=== PATIENT | male | born 1975 ===

== ENCOUNTER 2018-04-19 16:34 | Emergency (ER) | payer SELFPAY ==
[2018-04-19 16:35] VITALS: BMI 28.8
--- NOTE | 2018-04-19 17:18 | C.PDOC ---
History Of Present Illness 42 y/o male, otherwise well, presents to the ED complaining of a dull headache, intermittent for 2 days. Patient is also complaining of bilateral shoulder pain with muscle stiffness and pain to the anterior chest. Otherwise he denies any dizziness, visual changes, cough, URI symptoms, SOB, fever, chills, neck pain/stiffness, vomiting, diarrhea, or abdominal pain. 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 No recent trauma or injury. Time Seen by Provider: 04/19/18 16:48 Chief Complaint (Nursing): Headache History Per: Patient History/Exam Limitations: no limitations Onset/Duration Of Symptoms: Days (2) Current Symptoms Are (Timing): Still Present Quality: Dull Past Medical History Reviewed: Historical Data, Nursing Documentation, Vital Signs - Medical History PMH: HTN Denies: Chronic Kidney Disease - [facility] Procedures LAPAROSCOPIC REPAIR UMBILICAL HERNIA W GRAFT OR PROSTHESIS (08/14/14) LAPAROSCOPIC ROBOTIC ASSISTED PROCEDURE (08/14/14) Family History: States: Unknown Family Hx - Social History Hx Alcohol Use: No Hx Substance Use: No - Immunization History Hx Tetanus Toxoid Vaccination: No Hx Influenza Vaccination: No Hx Pneumococcal Vaccination: No Review Of Systems Except As Marked, All Systems Reviewed And Found Negative. Constitutional: Negative for: Fever, Chills Eyes: Negative for: Vision Change, Other (Photophobia) Cardiovascular: Positive for: Chest Pain Respiratory: Negative for: Shortness of Breath Gastrointestinal: Negative for: Nausea, Vomiting, Abdominal Pain, Diarrhea Musculoskeletal: Positive for: Shoulder Pain. Negative for: Neck Pain Neurological: Positive for: Headache. Negative for: Weakness, Numbness, Dizziness Physical Exam - Physical Exam Appears: Non-toxic, No Acute Distress Skin: Normal Color, Warm, No Rash Head: Atraumatic, Normacephalic Eye(s): bilateral: Normal Inspection, PERRL, EOMI Oral Mucosa: Moist Neck: Supple, Other (muscle spasms to sternocleidomastoid muscles bilaterally, no meningeal signs) Chest: Symmetrical, No Tenderness (to chest wall) Cardiovascular: Rhythm Regular, No Murmur Respiratory: Normal Breath Sounds, No Accessory Muscle Use Extremity: Bilateral: Atraumatic, Normal Color And Temperature, Normal ROM Pulses: Left Radial: Normal, Right Radial: Normal Neurological/Psych: Oriented x3, Normal Speech, Normal Cranial Nerves ED Course And Treatment ECG: Interpreted By Me ECG Rhythm: Sinus Rhythm Interpretation Of ECG: Flipped Ts in lead 3, otherwise normal EKG. No ST elevations or depressions Rate From EC Medical Decision Making Medical Decision Making: Plan: - EKG - 600 mg PO Motrin - 975 mg PO Tylenol - 10 mg PO Flexeril - Reassess Disposition Counseled Patient/Family Regarding: Diagnosis, Need For Followup, Rx Given - Disposition Referrals: [facility] [Outside] Disposition: HOME/ ROUTINE Disposition Time: 17:52 Condition: STABLE Prescriptions: Cyclobenzaprine [Cyclobenzaprine HCl] 10 mg PO TID #12 tab Ibuprofen [Motrin] 600 mg PO TID #15 tab Instructions: Muscle Spasms (DC) Forms: Gen Discharge Inst Persian, [facility] (Persian) - POA Present On Arrival: None - Clinical Impression Clinical Impression: Headache, Musculoskeletal pain - Scribe Statement The provider has reviewed the documentation as recorded by the Bill Sanchez Provider Attestation: All medical record entries made by the Bill were at my direction and personally dictated by me. I have reviewed the chart and agree that the record accurately reflects my personal performance of the history, physical exam, medical decision making, and the department course for this patient. I have also personally directed, reviewed, and agree with the discharge instructions and disposition.
[2018-04-19 18:02] VITALS: BP 116/74; PULSE 60; RESP 20; TEMP 98.4; O2SAT 100
== END 2018-04-19 18:02 | disposition home or self-care (01) ==
LOC: C.ER 16:34
DX: R51 Headache (principal); M79.18 Myalgia, other site